=== PATIENT | female | born 1960 | race Two or more races ===

== ENCOUNTER → 2016-09-17 | Outpatient (CLI) | payer MEDICAID ==
--- NOTE | ~2016-09-17 | NDGEN ---
PATIENT'S NAME: GUY ZHENG [facility] AGE: 56 Y [address] ROOM: [place] [id number] LOCATION: [facility] ADMIT DATE: 09/17/2016 Neurodiagnostics DISCHARGE DATE: FAMILY PHYSICIAN: Patel Bueno MD ATTENDING PHYSICIAN: ROSE MARY CARROLL DATE OF PROCEDURE: 09/17/2016 PROCEDURE PERFORMED: Nerve conduction study of the bilateral upper extremities and needle EMG of the left upper extremity to rule out median neuropathy or cervical radiculopathy. INDICATION: This is a 56-year-old female who had bilateral carpal tunnel surgeries in the past. She is complaining about pain that is in the bilateral forearms mostly with some radiation into the wrists and into the hands. She has some symptoms suggestive of carpal tunnel syndrome with numbness into the fingers, mostly at bedtime, but not so much in the morning upon waking up. DESCRIPTION: Nerve conduction studies were done to look for any evidence of cervical radiculopathy or focal neuropathy at the wrists. There was some bilateral slowing of the median nerve with slow motor onset latencies, worse on the right, to 4.4 msec. On the left, it is slow to 4.0 msec. However, amplitudes were well preserved, and nerve conduction velocities were all within normal limits. The ulnar motor studies were within normal limits with normal motor onset latencies and normal velocities. In the right median nerve, there was a delay in the peak onset latencies to 4.4 msec, with the normal being 3.8 msec. In the left median sensory nerve, this was within normal limits. The ulnar sensory nerve studies were all within normal limits, and there were normal F-wave studies. Finally, on needle EMG of the left upper extremity, needle was placed into the abductor pollicis brevis of the left upper extremity as well as the pronator teres, biceps, triceps, and deltoid muscles. There was no evidence of any abnormal electrical activity at rest such as fibrillation potentials or positive sharp waves. On voluntary recruitment of the muscles, there was full recruitment of motor unit action potentials with the patient applying power. 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 Some slowing of the median onset latencies may be seen after carpal tunnel release surgery. However, the symptoms in this patient do show some more slowing in the right median nerve at the wrist PATIENT'S NAME: GUY ZHENG [facility] AGE: 56 Y [address] ROOM: [place], [place] [address] LOCATION: [facility] ADMIT DATE: 09/17/2016 Neurodiagnostics DISCHARGE DATE: FAMILY PHYSICIAN: Patel Bueno MD ATTENDING PHYSICIAN: ROSE MARY CARROLL that may eventually require carpal tunnel release surgery. The patient should try conservative therapy such as wearing a wrist immobilizer, especially at bedtime. MD MAYRA PICKERING/destiny /[id number] dtt: 09/27/16 [id number] GLEN JASON R. dtd: 09/17/16 [id number]
== END | disposition disaster alternative care site (69) ==
LOC: GNEU 09:00
DX: R20.0 Anesthesia of skin (principal)